=== PATIENT | male | born 1990 | race Caucasian/White ===

== ENCOUNTER 2018-02-02 15:48 | Emergency (ER) | payer OTHER, MEDICARE, MEDICAID ==
[~2018-02-02] VITALS: Ht 205.7 cm; Wt 142.9 kg
[2018-02-02] MEDS ORDERED: IOHEXOL 350 MG/ML 100 ML (OMNIPAQUE 350) VIAL IV ONE (16:15)
[2018-02-02] MEDS ORDERED: NS 250 ML (IVPB) BAG IV ONE (16:15)
[2018-02-02 16:47] LABS: HEMOGLOBIN 14.5 G/DL (13.3-17.7); MEAN PLATELET VOLUME 9.5 FL (7.4-10.4); RED BLOOD COUNT 4.93 10^6/uL (4.35-5.85); RED CELL DISTRIBUTION WIDTH 14.5 % (10.0-14.5); WHITE BLOOD COUNT 2.8 10^3/uL (4.3-11.0)
[2018-02-02 16:58] LABS: ALANINE AMINOTRANSFERASE 12 U/L (0-55); ALBUMIN 4.2 GM/DL (3.2-4.5); ALKALINE PHOSPHATASE 49 U/L (40-136); BILIRUBIN,DIRECT 0.1 MG/DL (0.0-0.3); BILIRUBIN,INDIRECT 0.2 MG/DL; BILIRUBIN,TOTAL 0.3 MG/DL (0.1-1.0); BUN/CREATININE RATIO 12; CALCIUM 9.4 MG/DL (8.5-10.1); CARBON DIOXIDE 31 MMOL/L (21-32); CHLORIDE 101 MMOL/L (98-107); CREATININE SERUM 0.74 MG/DL (0.60-1.30); GFR ESTIMATED > 60; GLUCOSE 103 MG/DL (70-105); SODIUM 138 MMOL/L (135-145); TOTAL PROTEIN 7.2 GM/DL (6.4-8.2)
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
[2018-02-02 18:04] LABS: BILIRUBIN,URINE NEGATIVE (NEGATIVE); CLARITY,URINE CLEAR; COLOR,URINE YELLOW; GLUCOSE, URINE (UA) NEGATIVE (NEGATIVE); KETONES,URINE NEGATIVE (NEGATIVE); LEUKOCYTE ESTERASE ,URINE NEGATIVE (NEGATIVE); NITRITE,URINE NEGATIVE (NEGATIVE); PH,URINE 8 (5-9); PROTEIN,URINE NEGATIVE (NEGATIVE); UROBILINOGEN,URINE NORMAL (NORMAL)
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
[2018-02-02 18:09] LABS: BACTERIA,URINE NEGATIVE /HPF
[2018-02-02] MEDS ORDERED: KETOROLAC 30 MG/ML VIAL IVP ONE (18:15)
[2018-02-02 18:20] VITALS: BP 117/80
--- OUTSIDE RECORDS SUMMARY | 2018-02-02 20:09 | XMS REPORT | Continuity of Care Document ---
Author Author [facility] Address Unknown Phone Unavailable Allergies Active Description Code Type Severity Reaction Onset Reported/Identified Relationship to Patient Clinical Status Yes No Known Drug Allergies [id number] N/A N/A Medications There is no data. Problems There is no data. Procedures There is no data. Results Test Result Range GLUCOSE (POC) - 12/11/11 09:29 GLUCOSE (POC) 84 mg/dL 70-99 HEMOGLOBIN - 12/11/11 09:35 MEAN CELL VOLUME 89.9 fl 80.0-100.0 HEMOGLOBIN 15.4 gm/dL 14.0-18.0 METABOLIC PANEL, COMPREHN - 12/11/11 09:35 POTASSIUM 4.1 mmol/L 3.5-5.3 EST GFR (MDRD) > 60 mL/min > 59 ANION GAP 6 mmol/L 5-15 EST CrCl (CG) > 60 mL/min > 59 GLUCOSE 80 mg/dL 70-99 CALCIUM 9.1 mg/dL 8.5-10.1 BLOOD UREA NITROGEN 14 mg/dL 7-20 CREATININE 0.6 mg/dL 0.8-1.3 SODIUM 139 mmol/L 135-148 CHLORIDE 103 mmol/L 98-110 AST/SGOT 20 Units/L 10-37 ALT/SGPT 22 Units/L < 66 CARBON DIOXIDE 30 mmol/L 21-32 TOTAL PROTEIN 7.9 gm/dL 6.4-8.2 ALBUMIN 3.8 gm/dL 3.4-5.0 BILI TOTAL 0.5 mg/dL 0.0-1.0 ALKALINE PHOSPHATASE TOTAL 46 Units/L 50-136 Automated blood complete blood count (hemogram) panel - 02/02/18 16:30 Blood leukocytes automated count (number/volume) 2.8 10*3/uL 4.3-11.0 Blood erythrocytes automated count (number/volume) 4.93 10*6/uL 4.35-5.85 Venous blood hemoglobin measurement (mass/volume) 14.5 g/dL 13.3-17.7 Blood hematocrit (volume fraction) 43 % 40-54 Automated erythrocyte mean corpuscular volume 87 [foz_us] 80-99 Automated erythrocyte mean corpuscular hemoglobin (mass per erythrocyte) 29 pg 25-34 Automated erythrocyte mean corpuscular hemoglobin concentration measurement ( mass/volume) 34 g/dL 32-36 Automated erythrocyte distribution width ratio 14.5 % 10.0-14.5 Automated blood platelet count (count/volume) 133 10*3/uL 130-400 Automated blood platelet mean volume measurement 9.5 [foz_us] 7.4-10.4 Liver function panel (serum or plasma alk phos, alb, total and direct bili, total protein, ALT, AST) - 02/02/18 16:30 Serum or plasma total bilirubin measurement (mass/volume) 0.3 mg/dL 0.1-1.0 Serum or plasma alkaline phosphatase measurement (enzymatic activity/volume) 49 U/L 40-136 Serum or plasma aspartate aminotransferase measurement (enzymatic activity/ volume) 14 U/L 5-34 Serum or plasma alanine aminotransferase measurement (enzymatic activity/volume ) 12 U/L 0-55 Serum or plasma protein measurement (mass/volume) 7.2 g/dL 6.4-8.2 Serum or plasma albumin measurement (mass/volume) 4.2 g/dL 3.2-4.5 Bilirubin direct 0.1 mg/dL 0.0-0.3 Serum or plasma indirect bilirubin measurement (mass/volume) 0.2 mg/ dL NRG Whole blood basic metabolic panel - 02/02/18 16:30 Serum or plasma sodium measurement (moles/volume) 138 mmol/L 135-145 Serum or plasma potassium measurement (moles/volume) 4.0 mmol/L 3.6-5.0 Serum or plasma chloride measurement (moles/volume) 101 mmol/L 98-107 Carbon dioxide 31 mmol/L 21-32 Serum or plasma anion gap determination (moles/volume) 6 mmol/L 5-14 Serum or plasma urea nitrogen measurement (mass/volume) 9 mg/dL 7-18 Serum or plasma creatinine measurement (mass/volume) 0.74 mg/dL 0.60-1.30 Serum or plasma urea nitrogen/creatinine mass ratio 12 NRG Serum or plasma creatinine measurement with calculation of estimated glomerular filtration rate > NRG Serum or plasma glucose measurement (mass/volume) 103 mg/dL 70-105 Serum or plasma calcium measurement (mass/volume) 9.4 mg/dL 8.5-10.1 Serum or plasma ethanol measurement (mass/volume) - 02/02/18 16:30 Serum or plasma ethanol measurement (mass/volume) < mg/dL <10 Complete urinalysis with reflex to culture - 02/02/18 17:56 Urine color determination YELLOW NRG Urine clarity determination CLEAR NRG Urine pH measurement by test strip 8 5-9 Specific gravity of urine by test strip 1.010 1.016- 1.022 Urine protein assay by test strip, semi-quantitative NEGATIVE NEGATIVE Urine glucose detection by automated test strip NEGATIVE NEGATIVE Erythrocytes detection in urine sediment by light microscopy NEGATIVE NEGATIVE Urine ketones detection by automated test strip NEGATIVE NEGATIVE Urine nitrite detection by test strip NEGATIVE NEGATIVE Urine total bilirubin detection by test strip NEGATIVE NEGATIVE Urine urobilinogen measurement by automated test strip (mass/volume) NORMAL NORMAL Urine leukocyte esterase detection by dipstick NEGATIVE NEGATIVE Automated urine sediment erythrocyte count by microscopy (number/high power field) NONE NRG Automated urine sediment leukocyte count by microscopy (number/high power field ) NONE NRG Bacteria detection in urine sediment by light microscopy NEGATIVE NRG Squamous epithelial cells detection in urine sediment by light microscopy NONE NRG Crystals detection in urine sediment by light microscopy NONE NRG Casts detection in urine sediment by light microscopy NONE NRG Mucus detection in urine sediment by light microscopy NEGATIVE NRG Complete urinalysis with reflex to culture NO NRG Encounters ACCT No. Visit Date/Time Discharge Status Pt. Type Provider Facility Loc./Unit Complaint [id number] 07/24/2016 14:32:53 07/24/2016 23:59:59 [facility] Outpatient Giovanni Martin [id number] 01/02/2018 09:27:09 Document Registration [id number] 12/11/2017 10:17:56 Document Registration [id number] 11/29/2017 05:30:29 Document Registration [id number] 11/28/2017 08:38:58 Document Registration [id number] 11/27/2017 08:20:48 Document Registration [id number] 07/10/2017 10:07:33 Document Registration [id number] 2017 10:13:38 Document Registration [id number] 02/02/2018 16:49:00 Document Registration [id number] 12/11/2011 08:20:00 12/11/2011 14:50:00 [facility] Outpatient Jackie FREITAS, [facility]
--- OUTSIDE RECORDS SUMMARY | 2018-02-02 20:09 | XMS REPORT | CCD ---
Author Author TIANA KERN Unknown Address [address] [facility] [address] [place] [address] Care Team Providers Care Traffic Engineering Technician Name Role Phone [facility], JIM DO Attphys [facility], TORRES MICHAELS Prisurg B., TOMMIE NASST S., KELLI NASST S., RAUL NASST S., RASHAWN Schreiber NASST G., TABATHA NASST D., YAO Cook NASST M., ISRRAEL NASST N., TIM NASST T., HEIDY NASST Allergies Allergy Code Allergy Type Reaction Status No Known Drug Allergies 0 Drug allergy Active Active Medications Medication Code Dose Units Frequency Route Modification Start Date/Time Levaquin 500MG Oral Tablet 126019 1 TABLET DAILY BY MOUTH 06/27/2016 09:47 Prescription Detail 1 TABLET BY MOUTH DAILY x5 days clonazePAM 0.5MG Oral Tablet 237550 0.5 EACH TWO TIMES A DAY BY MOUTH 06/27/2016 08:46 Prescription Detail 0.5 EACH BY MOUTH TWO TIMES A DAY QUEtiapine Fumarate 100MG Oral Tablet 707438 300 MILLIGRAMS AT BEDTIME BY MOUTH 06/27/2016 08:45 Prescription Detail 300 MILLIGRAMS BY MOUTH AT BEDTIME cloNIDine HCl 0.1MG Oral Tablet 341366 1 EACH THREE TIMES A DAY BY MOUTH 06/27/2016 08:35 Prescription Detail 1 EACH BY MOUTH THREE TIMES A DAY Divalproex Sodium 500MG Oral Tablet, Delayed Release [id number] 8266 MILLIGRAMS TWO TIMES A DAY BY MOUTH 08:35 Prescription Detail 1000 MILLIGRAMS BY MOUTH TWO TIMES A DAY Problems Problem Code Start Date Resolved Date Status Pneumonia 591378195 06/25/2016 Active Sepsis 03934350 06/25/2016 Active Procedures Procedure Code Procedure Type Date CX CHEST [address] 06/25/2016 COMPREHENSIVE METABOLIC PANEL 046914526 SNOMED CT 2016 CBC W/ AUTO DIFF (RFLX MAN DIFF IF IND) 5183763 SNOMED CT 06/26/2016 CULTURE BLOOD 71567252 SNOMED CT 06/25/2016 LACTIC ACID 7477659 SNOMED [address] 06/25/2016 COMPREHENSIVE METABOLIC PANEL 147292591 SNOMED CT 2016 CBC W/ AUTO DIFF (RFLX MAN DIFF IF IND) 9264846 SNOMED CT 06/25/2016 INFLUENZA A & B 390087587 SNOMED CT 06/25/2016 ^CBC W/ MANUAL DIFF 45333390 SNOMED CT 06/26/2016 ^CBC W/AUTO DIFF 6959950 SNOMED CT 06/25/2016 BAN AERO ECLIPSE TREATMENT 46610012 SNOMED CT 06/27/2016 BAN AERO ECLIPSE TREATMENT 29528686 SNOMED CT 06/26/2016 BAN AERO ECLIPSE TREATMENT 50749587 SNOMED CT 06/26/2016 BAN AERO ECLIPSE TREATMENT 47252479 SNOMED CT 06/26/2016 BAN AERO ECLIPSE TREATMENT 00369663 SNOMED CT 06/26/2016 Results COMPREHENSIVE METABOLIC PANEL - Collect Date/Time: 06/26/2016 05:50 Test Name Code Test Result Test Units Test Ref Range GLUCOSE 2345-7 91 MG/DL L=70 H=100 SODIUM 2951-2 140 MEQ/L L=135 H=148 POTASSIUM 2823-3 4.1 MEQ/L L=3.5 H=5.3 CHLORIDE 2075-0 103 MEQ/L L=96 H=110 CO2 2028-9 27 MEQ/L L=22 H=29 BUN 3094-0 16 MG/DL L=8 H=22 CREATININE 2160-0 0.9 MG/DL L=0.6 H=1.6 SGOT/AST 1920-8 16 IU/L L=10 H=40 SGPT/ALT 1742-6 10 IU/L L=8 H=54 ALK PHOS 6768-6 41 IU/L L=35 H=115 TOTAL PROTEIN 2885-2 6.9 G/DL L=5.5 H=8.5 ALBUMIN 1751-7 3.5 G/DL L=3.1 H=5.4 TOTAL BILI 1975-2 0.6 MG/DL L=0.0 H=1.5 CALCIUM 58234-5 8.5 MG/DL L=8.2 H=10.6 AGE 84561-9 26 yrs GFR NonAA 11175-1 103 GFR AA 71165-9 125 eGFR 38164-8 >60 N/A eGFR AA* 06730-6 >60 N/A COMPREHENSIVE METABOLIC PANEL - Collect Date/Time: 06/25/2016 23:00 Test Name Code Test Result Test Units Test Ref Range GLUCOSE 2345-7 98 MG/DL L=70 H=100 SODIUM 2951-2 141 MEQ/L L=135 H=148 POTASSIUM 2823-3 4.0 MEQ/L L=3.5 H=5.3 CHLORIDE 2075-0 103 MEQ/L L=96 H=110 CO2 2028-9 47 MEQ/L L=22 H=29 BUN 3094-0 13 MG/DL L=8 H=22 CREATININE 2160-0 1.0 MG/DL L=0.6 H=1.6 SGOT/AST 1920-8 21 IU/L L=10 H=40 SGPT/ALT 1742-6 12 IU/L L=8 H=54 ALK PHOS 6768-6 47 IU/L L=35 H=115 TOTAL PROTEIN 2885-2 7.7 G/DL L=5.5 H=8.5 ALBUMIN 1751-7 3.9 G/DL L=3.1 H=5.4 TOTAL BILI 1975-2 0.5 MG/DL L=0.0 H=1.5 CALCIUM 74604-4 9.8 MG/DL L=8.2 H=10.6 AGE 26 yrs GFR NonAA 91 GFR AA 110 eGFR >60 N/A eGFR AA* >60 N/A CBC W/ AUTO DIFF (RFLX MAN DIFF IF IND) - Collect Date/Time: 06/26/2016 05:50 Test Name Code Test Result Test Units Test Ref Range WBC 03934-5 8.7 TH/CMM L=4.5 H=10.8 RBC 789-8 4.67 ML/CMM L=4.70 H=6.10 HGB 718-7 13.5 G/DL L=14.0 H=18.0 HCT 4544-3 41.4 % L=42.0 H=52.0 MCV 29486-3 89 FL L=81 H=99 MCH 48298-5 28.9 PG L=27.0 H=33.0 MCHC 97984-3 32.6 G/DL L=31.0 H=36[place] [address]-3 44 FL L=36 H=50 [place] [address]-4 13.6 % L=0.0 H=14.8 MPV 53177-8 9.1 FL L=9.3 H=12.5 PLT 777-3 131 TH/CMM L=130 H=440 NRBC# 49163-0 0.00 TH/CMM L=0.00 H=0.00 NRBC% 19248-5 0.0 /100WBC L=0.0 H=2.0 %NEUT 64792-6 67.6 % %LYMP 35257-5 11.5 % %MONO 51697-6 20.6 % %EOS 12875-9 0.0 % %BASO 15809-3 0.1 % #NEUT 03077-8 5.88 TH/CMM L=2.10 H=8.20 #LYMP 14229-9 1.00 TH/CMM L=0.90 H=5.20 #MONO 02925-1 1.79 TH/CMM L=0.16 H=1.00 #EOS 62722-8 0.00 TH/CMM L=0.00 H=0.80 #BASO 65475-8 0.01 TH/CMM L=0.00 H=0.20 SEGS 44128-9 51 % BANDS 29016-5 15 % LYMPHS 70416-3 15 % MONOS 18304-4 19 % MANUAL DIFF 08423-8 SEE BELOW N/A CBC W/ AUTO DIFF (RFLX MAN DIFF IF IND) - Collect Date/Time: 06/25/2016 23:00 Test Name Code Test Result Test Units Test Ref Range WBC 10683-0 7.2 TH/CMM L=4.5 H=10.8 RBC 789-8 4.82 ML/CMM L=4.70 H=6.10 HGB 718-7 14.3 G/DL L=14.0 H=18.0 HCT 4544-3 42.0 % L=42.0 H=52.0 MCV 87 FL L=81 H=99 MCH 29.7 PG L=27.0 H=33.0 MCHC 34.0 G/DL L=31.0 H=36.0 RDW SD 43 FL L=36 H=50 RDW CV 13.5 % L=0.0 H=14.8 MPV 9.3 FL L=9.3 H=12.5 PLT 777-3 129 TH/CMM L=130 H=440 NRBC# 0.00 TH/CMM L=0.00 H=0.00 NRBC% 0.0 /100WBC L=0.0 H=2.0 %NEUT 72.3 % %LYMP 11.0 % %MONO 16.3 % %EOS 0.0 % %BASO 0.1 % #NEUT 5.19 TH/CMM L=2.10 H=8.20 #LYMP 0.79 TH/CMM L=0.90 H=5.20 #MONO 1.17 TH/CMM L=0.16 H=1.00 #EOS 0.00 TH/CMM L=0.00 H=0.80 #BASO 0.01 TH/CMM L=0.00 H=0.20 MANUAL DIFF NOT IND N/A INFLUENZA A & B - Collect Date/Time: 06/25/2016 23:00 Test Name Code Test Result Test Units Test Ref Range INFLUENZA A & B 6437-8 NO INFLUENZA A OR B DETECTED N/A LACTIC ACID - Collect Date/Time: 06/25/2016 23:00 Test Name Code Test Result Test Units Test Ref Range LACTIC ACID 2524-7 1.7 mmol/L L=0.5 H=1.6 Function Status Unknown or Not Available. History of Immunizations Immunization Code Date influenza, unspecified formulation 88 2016 Plan of Treatment Unknown or Not Available. Social History Smoking Status Code Start Date End Date Never smoker [id number] Vital Signs Vital Sign Value Unit Date/Time Recent/Initial? BMI (Body Mass Index) 39.62 kg/m2 06/26/2016 01:02 Initial VS Weight Measured 334.1 [lb_av] 06/26/2016 01:02 Initial VS Height 77 [in_i] 06/26/2016 01:02 Initial VS BSA (Body Surface Area) 2.87 m2 06/26/2016 01:02 Initial VS BP Systolic 101 mm[Hg] 06/26/2016 01:02 Initial VS BP Diastolic 61 mm[Hg] 06/26/2016 01:02 Initial VS Respiratory Rate 20 /min 06/26/2016 01:02 Initial VS Heart Rate 96 /min 06/26/2016 01:02 Initial VS O2 % BldC Oximetry 95 % 06/26/2016 01:02 Initial VS Body Temperature 100.9 [degF] 06/26/2016 01:02 Initial VS Weight Measured 334.1 [lb_av] 06/26/2016 01:18 Most Recent VS BP Systolic 120 mm[Hg] 06/27/2016 07:29 Most Recent VS BP Diastolic 62 mm[Hg] 06/27/2016 07:29 Most Recent VS Respiratory Rate 20 /min 06/27/2016 07:29 Most Recent VS Heart Rate 88 /min 06/27/2016 07:29 Most Recent VS O2 % BldC Oximetry 97 % 06/27/2016 07:29 Most Recent VS Body Temperature 99.9 [degF] 06/27/2016 07:29 Most Recent VS Function Status Unknown or Not Available. Goals Unknown or Not Available. ASSESSMENTS Unknown or Not Available. Health Concerns Section Unknown or Not Available.
== END 2018-02-02 18:20 | disposition home or self-care (01) ==
LOC: ER 15:49
DX: S00.81XA Abrasion of other part of head, initial encounter (principal); R52 Pain, unspecified; I10 Essential (primary) hypertension; G40.909 Epilepsy, unspecified, not intractable, without status epilepticus; V49.60XA Unspecified car occupant injured in collision with unspecified motor vehicles in traffic accident, initial encounter
CPT/HCPCS: 36415; 70450; 70486; 71260; 72125; 74177; 80048; 80076; 80320; 81000; 85027; 93041; 96374